=== PATIENT | male | born 1980 | race Hispanic/Latino ===

== ENCOUNTER 2023-11-16 17:28 | Emergency (ER) | payer OTHER, SELFPAY ==
[2023-11-16 17:29] VITALS: BP 115/76; PULSE 61; RESP 16; TEMP 36.5; O2SAT 100
[2023-11-16 17:54] VITALS: TEMP 36.7
--- NOTE | 2023-11-16 18:49 | ED.EAR ---
HPI - Ear Problem General Chief complaint: Ear Stated complaint: right ear pain Time Seen by Provider: 11/16/23 17:58 Source: patient Mode of arrival: ambulatory Limitations: language barrier (Patient's family member is interpreting) History of Present Illness HPI Narrative: This is a 43-year-old male that presents to the emergency department for right-sided otalgia. Ongoing over the last week. Reports some drainage from the ear. Denies fevers. Related Data Allergies Allergy/AdvReac Type Severity Reaction Status Date / Time No Known Allergies Allergy Verified 11/16/23 17:28 Review of Systems Review of Systems: CONSTITUTIONAL: Denies fever ENT: Reports otalgia. All systems reviewed & are unremarkable except as noted in HPI and below PMFSH Past Medical History Medical History (Updated 11/16/23 @ 18:52 by Tiarra Tate PA-C) No active medical problems Social History Social History (Updated 11/16/23 @ 18:53 by Tiarra Tate PA-C) Smoking status: Never smoker Exam Narrative: GENERAL: Well-appearing, well-nourished, and in no acute distress. HEAD: Normocephalic, atraumatic. EYES: EOMI. ENT: Left TM pearly gutierres non-bulging. Right TM bulging with purulent drainage behind it NECK: Supple. No adenopathy or masses. CHEST: No respiratory distress. HEART: Regular rate EXTREMITIES: Normal range of motion. No edema. SKIN: Warm, dry, no rash. NEURO: No focal deficits. Alert and oriented x3. PSYCH: Normal mood and affect Course Course Emergency Course: Patient and family agree with plan of care Vital Signs Vital signs: Vital Signs Temperature 97.7 F 11/16/23 17:29 Pulse Rate 61 11/16/23 17:29 Respiratory Rate 16 11/16/23 17:29 Blood Pressure 115/76 11/16/23 17:29 Pulse Oximetry 100 11/16/23 17:29 Oxygen Delivery Room Air 11/16/23 17:29 Temperature 98.1 F 11/16/23 17:54 Pulse Rate 61 11/16/23 17:29 Respiratory Rate 16 11/16/23 17:29 Blood Pressure 115/76 11/16/23 17:29 Pulse Oximetry 100 11/16/23 17:29 Oxygen Delivery Room Air 11/16/23 17:29 Medical Decision Making MDM Narrative Medical decision making narrative: Patient presents the emergency department for right-sided otalgia. Exam is consistent with otitis media. He is afebrile and nontoxic appearing. Will be started on oral antibiotics. Instructed to follow up with primary provider. He was given warnings to return to the ER Differential Diagnosis Differential Diagnosis: Otitis media, otitis externa Vital Signs Vital Signs: Vital Signs Temperature 97.7 F 11/16/23 17:29 Pulse Rate 61 11/16/23 17:29 Respiratory Rate 16 11/16/23 17:29 Blood Pressure 115/76 11/16/23 17:29 Pulse Oximetry 100 11/16/23 17:29 Oxygen Delivery Room Air 11/16/23 17:29 Temperature 98.1 F 11/16/23 17:54 Pulse Rate 61 11/16/23 17:29 Respiratory Rate 16 11/16/23 17:29 Blood Pressure 115/76 11/16/23 17:29 Pulse Oximetry 100 11/16/23 17:29 Oxygen Delivery Room Air 11/16/23 17:29 Critical Care Time Critical Care Time Critical Care Time: No Discharge Plan Discharge Clinical Impression: Otitis media Qualifiers: Otitis media type: unspecified Chronicity: acute Qualified Code(s): H66.90 - Otitis media, unspecified, unspecified ear Patient Disposition: Home, Self-Care Condition: Stable Instructions: Antibiotic Form, Ear Infection (ED) Additional Instructions: Return to the emergency department for worsening symptoms, or any other concerns Remain well-hydrated, get plenty of rest. Take Tylenol or Motrin [id number] for pain as needed. Take oral antibiotic as prescribed Follow up with primary care doctor Prescriptions: New amoxicillin-pot clavulanate 875-125 mg tablet 1 tablet PO Q12H 10 Days Qty: 20 0RF Follow-up/Referrals: PHYSICIAN,SENIOR TECHNICAL RECRUITER [Primary Care Provider] - Simeon Cordero MD [Physician] -
[2023-11-16 18:59] VITALS: BP 127/62; PULSE 73; RESP 18; TEMP 36.8; O2SAT 99
== END 2023-11-16 19:00 | disposition home or self-care (01) ==
PROVIDERS: Emergency Provider Physician Assistant
DX: H66.91 Otitis media, unspecified, right ear (principal)
CPT/HCPCS: 99283